=== PATIENT | female | born 1965 | race Caucasian/White ===

== ENCOUNTER → 2016-03-02 | Outpatient (CLI) | payer OTHER ==
[2016-03-02 10:26] LABS: ALT 47 U/L (9-52); AST 28 U/L (14-36); Alkaline Phosphatase 83 U/L (38-126); Anion Gap 11 mmol/L; Blood Urea Nitrogen 12 mg/dL (7-17); Calcium 9.7 mg/dL (8.4-10.2); Carbon Dioxide 29 mmol/L (22-30); Chloride 103 mmol/L (98-107); Cholesterol 121 mg/dL (<200); Creatine Kinase 69 U/L (30-135); Glucose 131 mg/dL (74-99); HDL Cholesterol 48 mg/dL (40-60); Non-African American GFR(MDRD) >60 (>60 ml/min/1.73 sqM); Potassium 5.2 mmol/L (3.5-5.1); Sodium 143 mmol/L (137-145); Total Bilirubin 0.6 mg/dL (0.2-1.3); Triglycerides 116 mg/dL (<150)
[2016-03-02 10:31] LABS: Basophils % (A) 0 %; CH 29.5; CHCM 33.4; Eosinophils # (A) 0.3 k/uL (0-0.7); Eosinophils % (A) 4 %; HCT 41.9 % (34.0-46.0); HDW 2.38; HGB 13.8 gm/dL (11.4-16.0); Luc # (Auto) 0.11; Luc % (Auto) 2; Lymphocytes # (A) 1.7 k/uL (1.0-4.8); Lymphocytes % (A) 28 %; MCH 29.3 pg (25.0-35.0); MCV 88.6 fL (80.0-100.0); Mean Platelet Volume 6.9; Monocytes # (A) 0.4 k/uL (0-1.0); Monocytes % (A) 6 %; Neutrophils # (A) 3.6 k/uL (1.3-7.7); Neutrophils % (A) 59 %; RBC 4.73 m/uL (3.80-5.40); RDW 12.7 % (11.5-15.5); WBC 6.1 k/uL (3.8-10.6); WBC (Perox) 6.14
== END | disposition home or self-care (01) ==
LOC: LABWHC1 09:43
PROVIDERS: ATTEND Family Medicine
DX: E55.9 Vitamin D deficiency, unspecified (principal); E78.2 Mixed hyperlipidemia; I10 Essential (primary) hypertension
CPT/HCPCS: 36415; 80053; 80061; 82306; 82550; 84443; 85025

== ENCOUNTER → 2016-08-23 | Outpatient (CLI) | payer OTHER ==
--- NOTE | 2016-08-23 14:03 | XR ---
EXAMINATION TYPE: XR clavicle RT DATE OF EXAM: 08/23/2016 CLINICAL HISTORY: pain TECHNIQUE: Three views of the right clavicle are obtained. COMPARISON: None FINDINGS: There is no acute fracture/dislocation evident. The acromioclavicular and glenohumeral guillermina int spaces appear within normal limits. The visualized ribs are intact and unremarkable. IMPRESSION: 1. There is no acute fracture or dislocation. ICD 10 NO FRACTURE, INITIAL EVALUATION
== END | disposition home or self-care (01) ==
LOC: RADXRYALE 10:39
PROVIDERS: ATTEND Family Medicine
DX: S40.011A Contusion of right shoulder, initial encounter (principal); X58.XXXA Exposure to other specified factors, initial encounter

== ENCOUNTER → 2017-11-08 | Outpatient (CLI) | payer SELFPAY ==
[2017-11-08 10:19] LABS: Basophils % (A) 1 %; Eosinophils # (A) 0.3 k/uL (0-0.7); Eosinophils % (A) 5 %; HCT 40.5 % (34.0-46.0); HGB 13.3 gm/dL (11.4-16.0); Lymphocytes # (A) 1.6 k/uL (1.0-4.8); Lymphocytes % (A) 28 %; MCH 29.5 pg (25.0-35.0); MCHC 32.9 g/dL (31.0-37.0); MCV 89.6 fL (80.0-100.0); Monocytes # (A) 0.5 k/uL (0-1.0); Monocytes % (A) 8 %; Neutrophils # (A) 3.3 k/uL (1.3-7.7); Neutrophils % (A) 57 %; Platelet Count 162 k/uL (150-450); RBC 4.52 m/uL (3.80-5.40); RDW 13.1 % (11.5-15.5); WBC 5.8 k/uL (3.8-10.6)
[2017-11-08 10:33] LABS: ALT 74 U/L (9-52); AST 55 U/L (14-36); Albumin 3.7 g/dL (3.5-5.0); Alkaline Phosphatase 87 U/L (38-126); Anion Gap 8 mmol/L; Blood Urea Nitrogen 13 mg/dL (7-17); Calcium 9.6 mg/dL (8.4-10.2); Carbon Dioxide 29 mmol/L (22-30); Chloride 103 mmol/L (98-107); Cholesterol 108 mg/dL (<200); Creatine Kinase 92 U/L (30-135); Glucose 133 mg/dL (74-99); HDL Cholesterol 45 mg/dL (40-60); LDL Cholesterol,Calculated 44 mg/dL (0-99); Potassium 5.3 mmol/L (3.5-5.1); Sodium 140 mmol/L (137-145); Total Bilirubin 0.7 mg/dL (0.2-1.3); Total Protein 6.7 g/dL (6.3-8.2); Triglycerides 93 mg/dL (<150)
[2017-11-08 11:51] LABS: T4, Free (Free Thyroxine) 1.51 ng/dL (0.78-2.19)
== END | disposition home or self-care (01) ==
LOC: LABWHC1 09:36
PROVIDERS: ATTEND Family Medicine
DX: E11.9 Type 2 diabetes mellitus without complications (principal); E55.9 Vitamin D deficiency, unspecified; E78.2 Mixed hyperlipidemia; E66.01 Morbid (severe) obesity due to excess calories; H81.10 Benign paroxysmal vertigo, unspecified ear; I10 Essential (primary) hypertension
CPT/HCPCS: 36415; 80053; 80061; 82550; 84439; 84443; 85025

== ENCOUNTER → 2018-03-21 | Outpatient (CLI) | payer OTHER ==
--- NOTE | 2018-03-21 10:43 | US ---
EXAMINATION TYPE: US venous doppler duplex LE LT DATE OF EXAM: 03/21/2018 10:18 AM COMPARISON: NONE CLINICAL HISTORY: S83.402A sprain left knee, M79.605 pain l leg. Patient stated fell on ice 6 days ag o and c/o left posterior thigh and knee pain SIDE PERFORMED: Left TECHNIQUE: The lower extremity deep venous system is examined utilizing real time linear array sonog elke with graded compression, doppler sonography and color-flow sonography. VESSELS IMAGED: Common Femoral Vein Deep Femoral Vein Greater Saphenous Vein * Femoral Vein Popliteal Vein Small Saphenous Vein * Proximal Calf Veins (* superficial vessels) Left Leg: Negative for DVT IMPRESSION: 1. Left lower extremity ultrasound negative for deep venous thrombosis.
--- NOTE | 2018-03-21 10:53 | XR ---
EXAMINATION TYPE: XR knee complete LT DATE OF EXAM: 03/21/2018 COMPARISON: NONE HISTORY: Pain TECHNIQUE: Four views are submitted. FINDINGS: Narrowing of the medial compartment of the knee joint with hypertrophic spurring seen. Small amount o f fluid in the suprapatellar bursa. No erosive changes.. Osseous structures are intact. No acute fr acture seen. IMPRESSION: 1. No acute fracture or dislocation. 2. Osteoarthritis with a small amount of fluid in the suprapatellar bursa.
== END | disposition home or self-care (01) ==
LOC: RADUSWWP 09:46
PROVIDERS: ATTEND Emergency Medicine
DX: M17.12 Unilateral primary osteoarthritis, left knee (principal); M79.605 Pain in left leg

== ENCOUNTER → 2018-03-22 | Outpatient (CLI) | payer OTHER ==
--- NOTE | 2018-03-23 07:38 | MR ---
EXAMINATION TYPE: MR knee LT wo con DATE OF EXAM: 03/22/2018 COMPARISON: Left knee x-ray from yesterday. HISTORY: Lt knee sprain, fell at work Mar 15 TECHNIQUE: Multiplanar, multisequence images of the knee is performed without IV contrast. FINDINGS: Exam slightly suboptimal due to artifact from patient's large body habitus. MEDIAL MENISCUS: Anterior and posterior horns are intact without tear. LATERAL MENISCUS: Posterior horn is intact without tear. Anterior horn is irregular horizontal and ve rtical increased signal with oblique signal extending to superior articular surface sagittal image 11 , findings are consistent with full-thickness meniscal tear. CRUCIATE LIGAMENTS: The posterior cruciate ligament is intact and unremarkable. Anterior cruciate lig ament shows increased signal, is intact seen best on coronal images. COLLATERAL LIGAMENTS: The medial collateral ligament and lateral collateral ligament complex are inta ct and unremarkable. EXTENSOR MECHANISM: Visualized quadriceps and patellar tendons are intact. EFFUSION: No significant suprapatellar joint effusion. POPLITEAL CYST: No popliteal/godoy cyst. TRICOMPARTMENT SPACES: Mild tricompartment joint space loss is present. Mild tibial condylar spurring and spurring medial and lateral tibiofemoral compartments is noted. CARTILAGE: Chondromalacia patella is present with full-thickness cartilaginous loss along superior as pect of the posterior patellar pole. Some reactive osseous changes are appreciated seen best sagittal image 14 and axial image 18. BONE MARROW SIGNAL: Heterogeneity consistent with red marrow reconversion is noted. A focal 8 mm well -defined lesion central distal femur anteriorly axial image 15 is felt to reflect enchondroma or othe r benign etiology. OTHER: No additional significant abnormality is appreciated. IMPRESSION: 1. Full-thickness tear anterior horn of lateral meniscus. 2. Mild to moderate tricompartment degenerative changes with full-thickness chondromalacia patella an d reactive osseous changes noted superiorly. 3. Myxoid degeneration ACL.
== END | disposition home or self-care (01) ==
LOC: RADMRIMAIN 19:27
PROVIDERS: ATTEND Emergency Medicine
DX: S83.282A Other tear of lateral meniscus, current injury, left knee, initial encounter (principal); M17.12 Unilateral primary osteoarthritis, left knee; M22.42 Chondromalacia patellae, left knee

== ENCOUNTER → 2018-05-29 | Outpatient (CLI) | payer OTHER ==
--- NOTE | 2018-05-29 14:53 | XR ---
EXAMINATION TYPE: XR chest 2V DATE OF EXAM: 05/29/2018 COMPARISON: Chest x-ray January 24, 2013. HISTORY: Presurgical study. TECHNIQUE: Frontal and lateral views of the chest are obtained. FINDINGS: There is no focal air space opacity, pleural effusion, or pneumothorax seen. The cardiac silhouette size is within normal limits. Multilevel spurring in thoracic spine is redemonstrated. Cho lecystectomy clips are redemonstrated. IMPRESSION: No acute cardiopulmonary process. No significant change from prior.
== END | disposition home or self-care (01) ==
LOC: RADXRYALE 14:27
PROVIDERS: ATTEND Physician Assistant Medical
DX: Z01.818 Encounter for other preprocedural examination (principal); Z01.812 Encounter for preprocedural laboratory examination
CPT/HCPCS: 71046

== ENCOUNTER → 2018-06-21 | Day surgery (SDC) | payer OTHER ==
[2018-06-19 11:04] VITALS: BMI 50.4
--- NOTE | 2018-06-20 10:04 | HP ---
HISTORY AND PHYSICAL CHIEF COMPLAINT: Left knee pain. HISTORY OF PRESENT ILLNESS: The patient is a 53-year-old female who presents with left knee pain after initial injury at work, March 15, 2018. She notes persistent pain with weightbearing activities. She has intermittent locking and catching. She has tried therapy, medications, and in addition to an injection with only partial temporary relief. She has been working with restrictions. PAST MEDICAL HISTORY: Significant for type 2 diabetes, hypertension, obesity. PAST SURGICAL HISTORY: Significant for cholecystectomy, appendectomy, and right shoulder surgery. CURRENT MEDICATIONS: 1. Metformin. 2. Tramadol. 3. Lisinopril. 4. Pravastatin. 5. Zyrtec. 6. Meclizine. ALLERGIES: CODEINE and SULFA. FAMILY HISTORY: Significant for cancer and heart disease. SOCIAL HISTORY: Significant for previous tobacco use; however, she quit in 1993. REVIEW OF SYSTEMS: Sixteen point review of systems otherwise reviewed and is noncontributory. PHYSICAL EXAMINATION: On examination, the patient is approximately 5 foot 8, 310 pounds of endomorphic habitus. HEENT exam is nonfocal. Neck is supple. She has painless passive motion of her left hip. Straight leg raise is negative. Active motion left knee -4 to 90 degrees of flexion. She is tender about the medial and lateral joint line. Collaterals are stable, Polly is negative, Christy's elicits medial and lateral pain. Her distal neurovascular exam appears intact in the left lower extremity. MRI report shows evidence of a an anterolateral meniscal tear in addition to cartilage defect of the patella. IMPRESSION: 1. Left knee internal derangement with probable lateral meniscal tear and possible patellar chondral injury. 2. Morbid obesity. 3. Sjq-cgwzten-spvrmzjwk diabetes. RECOMMENDATIONS: I talked to the patient at length regarding her condition along with treatment options. She has persistent pain and mechanical symptoms despite conservative measures. After thorough discussion, she opts to proceed with surgery. Will plan to proceed with arthroscopic evaluation, possible partial lateral meniscectomy in addition to possible patellar chondroplasty. Risks and benefits were discussed at length in layman's terms. We will likely perform that as an outpatient procedure. MMODL / IJN: [id number] /
[~2018-06-21] MED LIST: DEXAMETHASONE SOD PHOSPHATE 10 MG/ML 1 ML VIAL IV ONE; HYDROcodone/APAP 7.5-325MG 1 EACH TAB PO ONE; KETOROLAC 30 MG/ML 1 ML VIAL ONE; LIDOCAINE 1% 20 ML VIAL (10MG/ML) FOR IV START SQ ONE; LIDOCAINE 1% INJ 10MG/ML (20 ML MDV) ONE; MIDAZOLAM 2 MG/2 ML VIAL IV PRN; ONDANSETRON 4 MG/2 ML VIAL IVP ONE; PROPOFOL 10 MG/ML 20 ML VIAL IV ONE; SCOPOLAMINE 1.5MG/72HR PATCH TRANSDERM ONE; SUCCINYLCHOLINE CHLORIDE VIAL 200 MG/10 ML VIAL IV ONE; fentaNYL (PF) 50 MCG/ML 2 ML AMP ONE
[2018-06-21] MEDS: LACTATED RINGERS 1,000 ML IV SCH ×2 (09:16→10:11)
[2018-06-21 09:29] LABS: Glucose,Whole Blood 157 mg/dL (75-99)
[2018-06-21] MEDS: ceFAZolin 3 GM in SODIUM CHLORIDE 0.9% 100 ML IVPB ONE ×2 (10:17→10:20)
--- NOTE | 2018-06-21 10:57 | P.OP ---
Date of Procedure: 06/21/18 Preoperative Diagnosis: Left knee internal derangement Postoperative Diagnosis: Left knee anterior lateral meniscal tear/posterior medial meniscal tear/grade 3 chondral injury central distal medial femoral condyle Procedure(s) Performed: Left knee arthroscopic partial medial meniscectomy/partial lateral meniscectomy/medial femoral chondrectomy/microfracture medial femoral condyle Anesthesia: ALMA Surgeon: Win Garner Estimated Blood Loss (ml): 10 Pathology: none sent Condition: stable Disposition: PACU Indications for Procedure: The patient's a 53-year-old female who presents with progressive left knee pain and mechanical symptoms despite conservative treatment. A discussion of the risks and benefits of operative intervention versus continued conservative measures was made with the patient. She opted to proceed with surgery. Operative risks to include infection, neurovascular injury, development of blood clots, possible incomplete raises symptoms, possible worsening symptoms and need for subsequent procedures was discussed. Informed consent was obtained. Operative Findings: As below Description of Procedure: The patient was brought to the operating room, and after induction of general anesthesia examined the left knee. Collaterals were stable, Polly was negative, and posterior drawer was negative. The left lower extremity was prepped and draped in a normal fashion. A superior lateral portal was made through a 3 mm skin incision superior and lateral to the patella. This was used for outflow. A lateral portal was made through a 5 mm vertical skin incision lateral to the patella tendon above the joint line. Diagnostic arthroscopy was performed. On inspection of the medial compartment there was an oblique tear involving the posterior medial meniscus into the root. This was not amenable to repair.. This was debrided back to stable base with straight baskets and a motorized shaver. A grade 3 chondral injury was noted involving the central distal portion of the medial femoral condyle measuring approximately 12 x 14 mm. There was a loose chondral fragment debrided back to stable base with a motorized shaver. Microfracture was performed with a 60 chondral on reaching the subchondral surface down to the bone marrow elements. On inspection of the notch, the anterior cruciate ligament appeared to be intact. On inspection of the lateral compartment an anterior lateral meniscal tear was noted in the white-white junction. This was debrided back to stable base with a motorized shaver. The remainder the lateral meniscus was stable and intact. On inspection of the patellofemoral articulation there were grade 2-3 chondral changes however no loose chondral fragments. The gutters were clear debris. The knee was then thoroughly irrigated. The portals were closed with Steri- Strips. A sterile dressing was applied in addition to a compression stocking. The patient was awoken from general anesthesia and transferred to recovery room in good condition. Blood loss was estimated at 10 mL. No complications were incurred.
[2018-06-21] MEDS: diphenhydrAMINE 50 MG/ML 1 ML VIAL IVP ONE ×2 (11:04→11:26)
[2018-06-21] MEDS: fentaNYL (PF) 50 MCG/ML 2 ML AMP IV PRN ×4 (11:07→11:36)
[2018-06-21 11:10] VITALS: TEMP 97.2
[2018-06-21] MEDS: HYDROmorphone 1 MG/ML 1 ML SYRINGE IVP ONE ×2 (11:44→11:54)
[2018-06-21 12:20] VITALS: BP 114/68; PULSE 68; RESP 17
[2018-06-22 16:15] LABS: Glucose,Whole Blood 183 mg/dL (75-99)
== END | disposition home or self-care (01) ==
LOC: OR 08:31
PROVIDERS: ATTEND Orthopaedic Surgery
DX: M23.322 Other meniscus derangements, posterior horn of medial meniscus, left knee (principal); M23.8X2 Other internal derangements of left knee; M23.342 Other meniscus derangements, anterior horn of lateral meniscus, left knee; I10 Essential (primary) hypertension; E66.01 Morbid (severe) obesity due to excess calories; E11.9 Type 2 diabetes mellitus without complications; E78.5 Hyperlipidemia, unspecified; J45.909 Unspecified asthma, uncomplicated; K76.0 Fatty (change of) liver, not elsewhere classified; Z79.82 Long term (current) use of aspirin; Z88.8 Allergy status to other drugs, medicaments and biological substances; Z79.84 Long term (current) use of oral hypoglycemic drugs; Z79.899 Other long term (current) drug therapy; Z87.891 Personal history of nicotine dependence; Z88.2 Allergy status to sulfonamides; Z88.5 Allergy status to narcotic agent; Z91.041 Radiographic dye allergy status; Z91.012 Allergy to eggs; Z68.43 Body mass index [BMI] 50.0-59.9, adult; Z79.1 Long term (current) use of non-steroidal anti-inflammatories (NSAID)
CPT/HCPCS: 81025; 29880; 29879; J0330; J1200; J1100; J0690; J2405; J2001; J3010; J1885; J1170; J2704

== ENCOUNTER → 2021-06-08 | Outpatient (CLI) | payer BC ==
--- NOTE | 2021-06-08 13:47 | MM ---
Reason for exam: follow-up at short interval from prior study. Last mammogram was performed 7 years and 4 months ago. History: Patient has history of endometrial cancer at age 39 and has history of other cancer at age 22. Family history of breast cancer in 2 maternal aunts, breast cancer in 3 paternal aunts, premenopausal breast cancer in sister, and premenopausal breast cancer in mother. Benign core biopsy of the left breast. Physical Findings: A clinical breast exam by your physician is recommended on an annual basis and results should be correlated with mammographic findings. MG 3D Diag Mammo W/Cad LT CC, MLO, XCCL, and LM view(s) were taken of the left breast. Prior study comparison: December 03, 2020, mammogram, performed at [facility]. January 30, 2014, bilateral MG screening mammo w CAD. January 09, 2012, bilateral digital screening mammo w/CAD. There are scattered fibroglandular densities. There is no discrete abnormality. No significant new findings when compared with previous films. Results were given to the patient verbally at the time of the exam. ASSESSMENT: Negative, BI-RAD 1 RECOMMENDATION: Routine screening mammogram of both breasts in 6 months. Back on schedule.
== END | disposition home or self-care (01) ==
LOC: RADMAMWWP 12:36
PROVIDERS: ATTEND Family Medicine
DX: N63.20 Unspecified lump in the left breast, unspecified quadrant (principal)
CPT/HCPCS: 77061; 77065

== ENCOUNTER → 2021-12-16 | Outpatient (CLI) | payer BC ==
--- NOTE | 2021-12-19 10:53 | MM ---
Reason for Exam: Screening (asymptomatic). Last screening mammogram was performed 12 month(s) ago. Patient History: Menarche at age 13. First Full-Term at age 29. Endometrial cancer, age 39. Benign Core Biopsy on the left side. Paternal aunt (Azucena) had breast cancer, age 56. Paternal aunt (Blayne) had breast cancer, age 62. Paternal aunt (Jessica) had breast cancer, age 48. Maternal aunt (Denise) had breast cancer, age 67. Maternal aunt (Diego) had breast cancer, age 56. Sister had breast cancer, age 28. Mother had breast cancer, age 62. Risk Values: Evie 5 year model risk: 4.8%. NCI Lifetime model risk: 29.5%. Prior Study Comparison: 01/30/2014 Bilateral Screening Mammogram, [facility]. 12/03/2020 Screening Mammogram, [facility]. 06/08/2021 Left Diagnostic Mammogram, [facility]. Tissue Density: The breast tissue is almost entirely fat. Findings: Analyzed By CAD. Pattern appears stable. Couple benign punctate calcifications are within the left breast. No significant interval changes are evident. No suspicious groups of microcalcifications, spiculated or lobular masses, architectural distortion or other secondary signs of malignancy are mammographically apparent. Overall Assessment: Benign, BI-RAD 2 Management: Screening Mammogram of both breasts in 1 year. A negative mammogram report should not preclude additional follow up of suspicious palpable abnormalities. Patient should continue monthly self breast exam. A clinical breast exam by your physician is recommended on an annual basis and results should be correlated with mammographic findings. Electronically signed and approved by: Clifford Lockwood D.O. Radiologis
== END | disposition home or self-care (01) ==
LOC: RADMAMWWP 15:41
PROVIDERS: ATTEND Family Medicine
DX: Z12.31 Encounter for screening mammogram for malignant neoplasm of breast (principal); Z80.3 Family history of malignant neoplasm of breast
CPT/HCPCS: 77063; 77067

== ENCOUNTER → 2022-03-14 | Outpatient (CLI) | payer BC ==
--- NOTE | 2022-03-19 19:53 | US ---
EXAMINATION TYPE: US arterial LE multi level DATE OF EXAM: 03/14/2022 12:47 PM CLINICAL HISTORY: I73.9 PERIPHERAL VASCULAR DISEASE, UNSPECIFIED. History of diabetes. History of: Smoker: no Hypertension: Yes Diabetic: no Hyperlipidemia: no TIA/CVA: no Previous Vascular Surgery: no Doppler Waveforms: Right: Monophasic to biphasic Left: Monophasic to biphasic Right Brachial Pressure: Left Brachial Pressure: Ankle-Brachial Indices: Right: 1.10 Left: 1.09 Toe Brachial Indices: Right: 0.64 Left: 0.75 IMPRESSION: Loss of phasicity is nonspecific. Normal bilateral HARRIS and TBI values.
== END | disposition home or self-care (01) ==
LOC: RADUSWWP 11:48
PROVIDERS: ATTEND Podiatrist
DX: I73.9 Peripheral vascular disease, unspecified (principal); I10 Essential (primary) hypertension
CPT/HCPCS: 93922; 93923

== ENCOUNTER → 2023-06-20 | Outpatient (CLI) | payer BC ==
--- NOTE | 2023-06-20 17:16 | US ---
EXAMINATION TYPE: US transvaginal DATE OF EXAM: 06/20/2023 COMPARISON: NONE CLINICAL INDICATION: Female, 58 years old with history of N95.0 POSTMENOPAUSAL BLEEDING; postmenopaus al bleeding TECHNIQUE: Transvaginal (TV EXAM MEASUREMENTS: Uterus: 6.5 x 4.3 x 4.3 cm Endometrial Stripe: 0.6 cm Left Ovary: 3.4 x 2.6 x 3.1 cm 1. Uterus: Anteverted Hypoechoic area seen .8 x .7 x .7 cm. 2. Endometrium: wnl 3. Right Ovary: Obscured by overlying bowel gas 4. Left Ovary: Anechoic area seen 3.2 x 2.4 x 2.2 cm. 5. Bilateral Adnexa: wnl 6. Posterior cul-de-sac: wnl IMPRESSION: Endometrium within normal limits for thickness. Fibroid uterus. Left ovarian cyst measuring up to 3.2 cm.
== END | disposition home or self-care (01) ==
LOC: RADUSWWP 16:08
PROVIDERS: ATTEND Family Medicine
DX: N83.202 Unspecified ovarian cyst, left side (principal); D25.9 Leiomyoma of uterus, unspecified; N95.0 Postmenopausal bleeding
CPT/HCPCS: 76830

== ENCOUNTER 2023-07-03 06:57 | Day surgery (SDC) | payer BC ==
[~2023-07-03 06:57] MED LIST changes: -DEXAMETHASONE SOD PHOSPHATE 10 MG/ML 1 ML VIAL IV ONE; -HYDROcodone/APAP 7.5-325MG 1 EACH TAB PO ONE; -KETOROLAC 30 MG/ML 1 ML VIAL ONE; +LACTATED RINGERS 1,000 ML IV SCH; +LIDOCAINE 1% (10MG/ML) FOR IV START INTRADERMA PRN; -LIDOCAINE 1% 20 ML VIAL (10MG/ML) FOR IV START SQ ONE; -LIDOCAINE 1% INJ 10MG/ML (20 ML MDV) ONE; -MIDAZOLAM 2 MG/2 ML VIAL IV PRN; -ONDANSETRON 4 MG/2 ML VIAL IVP ONE; -PROPOFOL 10 MG/ML 20 ML VIAL IV ONE; -SCOPOLAMINE 1.5MG/72HR PATCH TRANSDERM ONE; -SUCCINYLCHOLINE CHLORIDE VIAL 200 MG/10 ML VIAL IV ONE; -fentaNYL (PF) 50 MCG/ML 2 ML AMP ONE
[2023-07-03] MEDS: LACTATED RINGERS 1,000 ML IV ONE (07:30)
[2023-07-03 07:48] LABS: Glucose,Whole Blood 101 mg/dL (70-110)
[2023-07-03] MEDS ORDERED: fentaNYL (PF) 50 MCG/ML 2 ML AMP ONE (07:57)
[2023-07-03] MEDS ORDERED: PROPOFOL 10 MG/ML 20 ML VIAL IV ONE (07:57)
[2023-07-03] MEDS ORDERED: LIDOCAINE 1% INJ 10MG/ML (20 ML MDV) ONE (07:57)
--- NOTE | 2023-07-03 08:00 | P.GSHP ---
History of Present Illness H&P Date: 07/03/23 Chief Complaint: Colon cancer screening 58-year-old female here for colonoscopy. She has not had one previously. No bowel complaints. No family history of colon cancer. Past Medical History Past Medical History: Diabetes Mellitus, Hypertension Additional Past Medical History / Comment(s): cerivcal cancer at age 22, endometriosis , recent us for post menopausal bleeding History of Any Multi-Drug Resistant Organisms: None Reported Past Surgical History: Appendectomy, Breast Surgery, Cholecystectomy, Orthopedic Surgery Additional Past Surgical History / Comment(s): breast bx, endmetriosis sx, knee and shoulder arthroscopy, Additional Past Anesthesia/Blood Transfusion Reaction / Comment(s): slow to wake up Smoking Status: Former smoker - Past Family History Mother Family Medical History: Cancer Additional Family Medical History / Comment(s): breast uterine cervical lung Sister(s) Family Medical History: Cancer Additional Family Medical History / Comment(s): uterine, liver, Medications and Allergies Home Medications Medication Instructions Recorded Confirmed Type Aspirin [Adult Low Dose Aspirin EC] 81 mg PO DAILY 06/19/18 07/03/23 History Cholecalciferol [Vitamin D3] 5,000 unit PO DAILY 06/19/18 07/03/23 History Cinnamon Bark [Cinnamon] 2,000 mg PO DAILY 06/19/18 07/03/23 History Meclizine [Antivert] 25 mg PO BID 06/19/18 07/03/23 History Nabumetone [Relafen] 150 mg PO BID 06/19/18 07/03/23 History Nf-Super Vitamin Complex 1 tab PO DAILY 06/19/18 07/03/23 History Thiamine Mononitrate (Vit B1) 250 mg PO DAILY 06/19/18 07/03/23 History [Vitamin B-1] metFORMIN HCL [Glucophage] 500 mg PO BID 06/19/18 07/03/23 History traMADol HCl [Ultram] 2 tab PO TID 06/19/18 07/03/23 History Magnesium Oxide [Magnesium] 1,000 mg PO BID 06/25/23 07/03/23 History Marenga(Unk) 1 tab PO DAILY 06/25/23 07/03/23 History Potassium Citrate 99 mg PO DAILY 06/25/23 07/03/23 History Tumeric(Unk) 2 tab PO DAILY 06/25/23 07/03/23 History Allergies Allergy/AdvReac Type Severity Reaction Status Date / Time pentazocine Allergy Severe Anaphylaxis Verified 07/03/23 07:34 bee venom protein (honey bee) Allergy Dyspnea Verified 07/03/23 07:34 codeine Allergy Dyspnea Verified 07/03/23 07:34 Iodinated Contrast Media Allergy Dyspnea Verified 07/03/23 07:34 [Iodinated Contrast- Oral and IV Dye] nickel Allergy Rash/Hives Verified 07/03/23 07:34 sulfamethoxazole Allergy Dyspnea Verified 07/03/23 07:34 [From Bactrim] trimethoprim [From Bactrim] Allergy Dyspnea Verified 07/03/23 07:34 EGG WHITE Allergy Dyspnea Uncoded 07/03/23 07:34 SULFUR Allergy Dyspnea Uncoded 07/03/23 07:34 Surgical - Exam Vital Signs Temp Pulse Resp BP Pulse Ox 97.5 F L 60 16 165/71 95 07/03/23 07:30 07/03/23 07:30 07/03/23 07:30 07/03/23 07:30 07/03/23 07:30 Physical exam: General: Well-developed, well-nourished HEENT: Normocephalic, sclerae nonicteric Abdomen: Nontender, nondistended Extremities: No edema Neuro: Alert and oriented Assessment and Plan (1) Colon cancer screening Narrative/Plan: Will proceed with colonoscopy at this time. Current Visit: Yes Status: Acute Code(s): Z12.11 - ENCOUNTER FOR SCREENING FOR MALIGNANT NEOPLASM OF COLON SNOMED Code(s): 174897219
[2023-07-03 08:23] VITALS: TEMP 97.5
--- NOTE | 2023-07-03 08:23 | P.PCN ---
Date of Procedure: 07/03/23 Procedure(s) Performed: PREOPERATIVE DIAGNOSIS: Colon cancer screening POSTOPERATIVE DIAGNOSIS: Colon polyps, diverticulosis PROCEDURE: Colonoscopy with snare polypectomy ANESTHESIA: MAC SURGEON: Woody Owens M.D. SPECIMENS: Polyps ENDOSCOPIC PROCEDURE: The patient was placed on the endoscopy table in the left decubitus position. The Olympus colonoscope was inserted into the anus and passed under direct visualization to the base of the cecum. The appendiceal orifice was visualized. From that point the scope was slowly withdrawn inspecting all surfaces carefully. There were no neoplastic inflammatory or polypoid lesions throughout the cecum or ascending colon. In the transverse colon a small polyp was seen and removed using the snare with cautery technique. The manner of the transverse descending and sigmoid colon appeared normal. In the rectum a small polyp was again noted and removed in a similar fashion. The patient had mild scattered diverticulosis. Digital rectal examination was normal. The patient was taken to the recovery room in stable condition per anesthesia guidelines. RECOMMENDATIONS: Await biopsy results. Anticipate repeat colonoscopy 5 to 7 years.
[2023-07-03 09:14] VITALS: BP 126/55; PULSE 67; RESP 14
== END 2023-07-03 09:03 | disposition home or self-care (01) ==
LOC: ORWHC2ENDO 06:57
PROVIDERS: ATTEND Surgery
DX: Z12.11 Encounter for screening for malignant neoplasm of colon (principal); D12.3 Benign neoplasm of transverse colon; K62.1 Rectal polyp; E11.9 Type 2 diabetes mellitus without complications; I10 Essential (primary) hypertension; E66.01 Morbid (severe) obesity due to excess calories; Z79.84 Long term (current) use of oral hypoglycemic drugs; Z87.891 Personal history of nicotine dependence; Z88.1 Allergy status to other antibiotic agents; Z88.2 Allergy status to sulfonamides; Z90.49 Acquired absence of other specified parts of digestive tract; Z91.030 Bee allergy status; Z91.041 Radiographic dye allergy status; Z91.048 Other nonmedicinal substance allergy status; Z91.012 Allergy to eggs; Z79.82 Long term (current) use of aspirin; Z79.899 Other long term (current) drug therapy; Z85.41 Personal history of malignant neoplasm of cervix uteri
CPT/HCPCS: 88305; 45385; J2001; J3010; J2704

== ENCOUNTER → 2023-10-24 | Outpatient (CLI) | payer BC ==
--- NOTE | 2023-10-24 11:59 | US ---
EXAMINATION TYPE: US transvaginal DATE OF EXAM: 10/24/2023 COMPARISON: 06/20/2023 CLINICAL INDICATION: Female, 58 years old with history of D25.9 LEIOMYOMA OF UTERUS; follow up TECHNIQUE: Transvaginal (TV) Date of LMP: [employer] TABLE[employer], EXAM MEASUREMENTS: Uterus: 6.3 x 4.1 x 3.9 cm Endometrial Stripe: 0.3 cm Left Ovary: 2.2 x 2.0 x 1.5 cm 1. Uterus: Anteverted Heterogenous. Unable to visualized previous seen area. 2. Endometrium: wnl 3. Right Ovary: Obscured by overlying bowel gas 4. Left Ovary: Follicle seen 5. Bilateral Adnexa: wnl 6. Posterior cul-de-sac: no free fluid Heterogenous anteverted appearance of the uterus. Unable to visualize previously seen subcentimeter u terine region. Endometrium is within normal limits. Right ovary is obscured by overlying bowel gas. L eft ovary is unremarkable dominant follicle. No free fluid. IMPRESSION: Heterogenous appearance of the uterus without definitively visualized focal subcentimeter uterine abn ormality from prior exam. Etiologies include fibroid uterus versus other such as adenomyosis.
--- NOTE | 2023-10-28 12:43 | MM ---
Reason for Exam: Screening (asymptomatic). Last mammogram was performed 1 year(s) and 11 month(s) ago. Patient History: Menarche at age 13. First Full-Term at age 29. Postmenopausal. Endometrial cancer, age 39. Benign Core Biopsy on the left side. Paternal aunt (Azucena) had breast cancer, age 56. Paternal aunt (Blayne) had breast cancer, age 62. Paternal aunt (Jessica) had breast cancer, age 48. Maternal aunt (Denise) had breast cancer, age 67. Maternal aunt (Diego) had breast cancer, age 56. Sister had breast cancer, age 28. Mother had breast cancer, age 62. Risk Values: Evie 5 year model risk: 5.3%. NCI Lifetime model risk: 28.5%. Prior Study Comparison: 12/03/2020 Screening Mammogram, [facility]. 06/08/2021 Left Diagnostic Mammogram, [facility]. 12/16/2021 Bilateral MG 3D screening mammo w/cad, [facility]. Tissue Density: The breasts are almost entirely fatty. Findings: Analyzed By CAD. Right breast: There is no suspicious group of microcalcifications or new suspicious mass. Left breast: There is no suspicious group of microcalcifications or new suspicious mass. Overall Assessment: Negative, BI-RAD 1 Management: Screening Mammogram of both breasts in [address] [facility] will attempt to contact patient to return for supplemental views and ultrasound if indicated. Patient should continue monthly self-breast exams. A clinical breast exam by your physician is recommended on an annual basis. This exam should not preclude additional follow-up of suspicious palpable abnormalities. Note on Evie scores and lifetime risk: 1. A Evie score greater than 3% is considered moderate risk. If this is the case, consider specialist referral to assess eligibility for a risk reducing agent. 2. If overall lifetime risk for the development of breast cancer is 20% or higher, the patient may qualify for future screening with alternating mammogram and breast MRI. Electronically signed and approved by: Nito De Los Santos DO
== END | disposition home or self-care (01) ==
LOC: RADUSWWP 11:20
PROVIDERS: ATTEND Family Medicine
DX: D25.9 Leiomyoma of uterus, unspecified
CPT/HCPCS: 76830; 77063; 77067

== ENCOUNTER → 2024-04-29 | Outpatient (CLI) | payer BC ==
--- NOTE | 2024-04-29 14:20 | XR ---
EXAMINATION TYPE: XR chest 2V DATE OF EXAM: 04/29/2024 CLINICAL INDICATION: Female, 59 years old with history of R059 COUGH, TECHNIQUE: Frontal and lateral views of the chest are obtained. COMPARISON: Chest x-ray May 29, 2018 FINDINGS: There is no focal air space opacity, pleural effusion, or pneumothorax seen. The cardiac silhouette size is stable and within normal limits. The osseous structures are intact. IMPRESSION: No acute pulmonary infiltrate. [facility], , 04/29/2024 2:18 PM
== END | disposition home or self-care (01) ==
LOC: RADXRYALE 13:57
PROVIDERS: ATTEND Physician Assistant Medical
DX: R05.9 Cough, unspecified (principal)
CPT/HCPCS: 71046